=== PATIENT | male | born 1950 | race Caucasian/White ===

== ENCOUNTER 2024-09-13 09:42 | Emergency (ER) | payer OTHER, SELFPAY ==
--- NOTE | ~2024-09-13 | XR_ITS ---
EXAMINATION: XR RIBS, LEFT CLINICAL INFORMATION: fall, pain COMPARISON: None available. TECHNIQUE: 3 views of the left ribs were obtained. FINDINGS: Lungs are clear. No consolidation, pneumothorax, or pleural effusion. The cardiomediastinal silhouette and pulmonary vasculature are normal. There are minimally displaced acute fractures of the left posterior lateral sixth and seventh ribs. XR/XR ribs LT min 3V w CXR1V IMPRESSION: Minimally displaced acute fractures of the left posterior lateral sixth and seventh ribs. Electronically signed by: Chanelle Sanchez MD 09/13/2024 10:58 AM [facility]
[2024-09-13 09:47] VITALS: BP 171/58; PULSE 89; RESP 16; TEMP 36.3; O2SAT 99; BMI 24.1
--- NOTE | 2024-09-13 10:42 | ED_ITS ---
HPI - General Adult General Chief complaint: Fall Stated complaint: fall x 5 days in bathtub/cold symptoms Time Seen by Provider: 09/13/24 10:27 Source: patient Mode of arrival: ambulatory Limitations: no limitations History of Present Illness ED Provider: Ludwin JOHNSON HPI narrative: 74 yold healthy male with pmh of DM presents to the ED for left rib pain that has been present for the past 5 days. Patient states he has had left rib pain ever since falling onto his left rib 5 days ago while in the shower. Patient states he was washing up and he slipped and fell and hit his left ribs on the edge of the bathtub ever since then has had pain in left rib with range of motion of left upper extremity and talking. Patient denies any coughing up blood, rectal bleeding, bloody urine. Patient denies any hitting head or loss of consciousness. Patient denies any dizziness, nausea, vomiting, abdominal pain, headache, or weakness before falling. Patient states he slipped on the wet tap. Related Data Previous Rx's ?Medication ?Instructions ?Recorded ibuprofen 400 mg tablet 400 mg PO Q6H PRN pain 7 days #28 09/13/24 tabs oxycodone 5 mg capsule 5 mg PO Q8H PRN pain 3 days #9 caps 09/13/24 Allergies Allergy/AdvReac Type Severity Reaction Status Date / Time No Known Allergies Allergy Verified 09/13/24 09:48 [No Known Allergies*] Review of Systems 2 Review of Systems: Left rib pain Yes all other systems are reviewed and are negative PMFSH Social History Social History Advance Directives: No Advance Directives Information Provided: Yes Physical Exam ED Vital Signs: Vital Signs - 24 hr 09/13/24 09:47 09/13/24 11:14 09/13/24 11:27 Temperature 97.4 F 98.1 F 98.1 F Pulse Rate 89 80 80 Respiratory Rate 16 15 15 Blood Pressure 171/58 H 121/66 121/66 Pulse Oximetry 99 99 99 Oxygen Delivery Method Room Air Room Air Room Air BMI result Body Mass Index 24.1 Const General: cooperative, healthy appearing, comfortable, no acute distress, well developed, alert, awake and Physically active Orientation/consciousness: patient oriented x3 HENMT Head: Yes normal to inspection, Yes No palpable skull fracture present, Yes normocephalic, Yes atraumatic and No abrasion Ears: hearing grossly normal bilaterally, external ears normal, TM's normal bilaterally, TM normal on the right, TM normal on the left, EAC's normal, mastoids normal and no periauricular adenopathy Eyes General: appearance normal, both eyes and all related structures Neck Neck: Yes normal visual inspection, Yes full ROM, Yes no lymphadenopathy, Yes no meningeal signs, Yes trachea midline, Yes supple, No anterior neck swelling and No tender Chest Chest palpation & inspection: normal inspection of the chest and normal palpation of entire chest wall Resp Effort & Inspection: normal respiratory effort and able to speak in complete sentences Auscultation: clear to auscultation bilaterally Cardio Jugular venous distension: no JVD Heart sounds: S1 normal heart sound present and S2 normal heart sound present GI Inspection: Yes normal to inspection Palpation (GI): Soft to palpation, not firm, nontender, no guarding and not rigid General: Yes no CVA tenderness Back/Spine/Pelvis Back: no CVA tenderness and No back tenderness Back/spine/pelvis image: 2 1. Positive for left posterior rib tenderness on palpation without any crepitus, ecchymosis, deformity, bleeding, or rash. Positive for pain on range of motion of left upper extremity and torso. Skin General skin exam: no rashes or lesions noted, elasticity normal and turgor normal Neuro General: patient oriented x3, gait normal, tone normal, moves all extremities, Normal light touch and pain sensation, no meningeal signs, no focal motor deficits, CN's II-XI intact bilaterally and normal sensation to monofilament Extrem General: Yes normal to inspection, Yes full ROM and Yes capillary refill normal Psych Appearance: grossly normal, well kempt and not disheveled Medical Decision Making Medical Decision Making MDM Narrative: 74-year-old male presents to ED left posterior rib pain after falling onto left rib but a bathtub 5 days ago had pain ever since. X-ray ordered and pending. 11:15pm: X-ray confirms minimally displaced 6 and 7th rib fracture. Negative for hemothorax pneumothorax. Patient to be discharged with incentive spirometry with Motrin for pain and also oxycodone for severe pain. Patient educated on the importance of being compliant with the sentence spirometry so he does not develop with lung collapse or pneumonia. Patient explained worrisome signs and informed to return to the ED immediately. Differential Diagnosis Differential Diagnoses: The differential diagnosis associated with the presentation includes (Pneumonia, hemothorax, rib fracture, pneumothorax) Admission/Observation Consideration of admission/observation: Escalation of care including admission/observation considered Independent Interpretation I performed an independent interpretation of an: Plain X-Ray Radiology Impression Discussion of test interpretation with radiology: I have reviewed the radiologist's reading. Independent Historian Clinical information obtained from an independent historian. History obtained from or confirmed by: Spouse () and Other (Patient, son) External Record Review External record reviewed: Other (Prior visits) Discharge Plan Discharge Clinical Impression: Fractured rib Patient Disposition: Home, Self-Care Instructions: Rib Fracture (ED) Additional Instructions: X-ray shows rib fractures. You will need to be compliant with incentive spirometry. Return to the ED for any shortness of breath, coughing up blood, severe chest pain, pain on inspiration, blood in stool, bloody urine, headache, dizziness, or any other concerning symptoms. FINDINGS: Lungs are clear. No consolidation, pneumothorax, or pleural effusion. The cardiomediastinal silhouette and pulmonary vasculature are normal. There are minimally displaced acute fractures of the left posterior lateral sixth and seventh ribs. XR/XR ribs LT min 3V w CXR1V IMPRESSION: Minimally displaced acute fractures of the left posterior lateral sixth and seventh ribs. Electronically signed by: Chanelle Sanchez MD 09/13/2024 10:58 AM [facility] [place] Prescriptions: New ibuprofen 400 mg tablet 400 mg PO Q6H PRN (Reason: pain) 7 Days Qty: 28 0RF oxycodone 5 mg capsule 5 mg PO Q8H PRN (Reason: pain) 3 Days Qty: 9 0RF Rx Instructions: Partial Fill upon patient request. Interventions: ED Discharge Assessment Last Done: 09/13/24 11:27 Discharge Date/Time: 09/13/24 11:27 Print Language: [place]
[2024-09-13 11:14] VITALS: BP 121/66; PULSE 80; RESP 15; TEMP 36.7; O2SAT 99
[2024-09-13 11:27] VITALS: BP 121/66; PULSE 80; RESP 15; TEMP 36.7; O2SAT 99
== END 2024-09-13 11:27 | disposition home or self-care (01) ==
PROVIDERS: Emergency Provider Emergency Medicine
DX: S22.32XA Fracture of one rib, left side, initial encounter for closed fracture (principal); R07.81 Pleurodynia; W18.2XXA Fall in (into) shower or empty bathtub, initial encounter; Y93.E1 Activity, personal bathing and showering; Y92.002 Bathroom of unspecified non-institutional (private) residence as the place of occurrence of the external cause; Y99.8 Other external cause status
CPT/HCPCS: 71101; 99283